=== PATIENT | male | born 1990 | race Caucasian/White ===

== ENCOUNTER 2017-11-08 22:58 | Emergency (ER) | payer OTHER, BC ==
[2017-11-08 23:04] VITALS: BP 125/77
[2017-11-08] MEDS ORDERED: TETRACAINE HCL 0.5% OPH SOLN 4 ML OD ONE (23:17)
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
[2017-11-09] MEDS ORDERED: ERYTHROMYCIN 0.5% OPH OINTMENT 3.5 GM (ER DISP) OD PRN (00:52)
[2017-11-09] MEDS ORDERED: KETOROLAC TROMETHAMINE 0.45% 4 DROP/0.4 ML DROPERETTE OD ONE (00:52)
== END 2017-11-09 01:20 | disposition home or self-care (01) ==
LOC: ER 22:58
DX: T15.01XA Foreign body in cornea, right eye, initial encounter (principal); W22.8XXA Striking against or struck by other objects, initial encounter; Y93.89 Activity, other specified; Y92.821 Forest as the place of occurrence of the external cause; Y99.0 Civilian activity done for income or pay
CPT/HCPCS: 99283; J3490

== ENCOUNTER → 2018-03-08 | Outpatient (CLI) | payer BC ==
--- NOTE | 2018-03-09 07:46 | WOMENS IMAGING REPORT ---
EXAM DESCRIPTION: U/S BREAST UNILAT LIMITED COMPLETED DATE/TIME: 03/08/2018 10:39 am REASON FOR STUDY: HYPERTROPHY OF BREAST; N62 N62 HYPERTROPHY OF BREAST COMPARISON: None. TECHNIQUE: Real-time and static grayscale imaging performed of the right and left male breast target ed to the area of clinical/mammographic concern. Selected color Doppler images recorded. LIMITATIONS: None. FINDINGS: Left and right retroareolar regions were evaluated with ultrasound. Patient has mild bila teral gynecomastia. No cysts. No worrisome masses. IMPRESSION: Mild bilateral gynecomastia BIRAD: 2 Benign findings. RECOMMENDATION: RECOMMENDED FOLLOW-UP: Follow-up as clinically indicated. COMMENT: The [employer] (ACR) has developed recommendations for screening MRI of the breasts in certain patient populations, to be used in conjunction with mammography. Breast MRI s urveillance may be appropriate for women with more than 20% lifetime risk of developing breast cancer as determined by genetic testing, significant family history of the disease, or history of mantle r adiation for Hodgkins Disease. ACR Practice Guidelines 2008. TECHNICAL DOCUMENTATION: JOB ID: [id number] [employer]- All Rights Reserved Reading location - IP/workstation name: [email or web address]
--- NOTE | 2018-03-09 07:46 | WOMENS IMAGING REPORT ---
EXAM DESCRIPTION: U/S BREAST UNILAT LIMITED COMPLETED DATE/TIME: 03/08/2018 10:39 am REASON FOR STUDY: HYPERTROPHY OF BREAST; N62 N62 HYPERTROPHY OF BREAST COMPARISON: None. TECHNIQUE: Real-time and static grayscale imaging performed of the right and left male breast target ed to the area of clinical/mammographic concern. Selected color Doppler images recorded. LIMITATIONS: None. FINDINGS: Left and right retroareolar regions were evaluated with ultrasound. Patient has mild bila teral gynecomastia. No cysts. No worrisome masses. IMPRESSION: Mild bilateral gynecomastia BIRAD: 2 Benign findings. RECOMMENDATION: RECOMMENDED FOLLOW-UP: Follow-up as clinically indicated. COMMENT: The [employer] (ACR) has developed recommendations for screening MRI of the breasts in certain patient populations, to be used in conjunction with mammography. Breast MRI s urveillance may be appropriate for women with more than 20% lifetime risk of developing breast cancer as determined by genetic testing, significant family history of the disease, or history of mantle r adiation for Hodgkins Disease. ACR Practice Guidelines 2008. TECHNICAL DOCUMENTATION: JOB ID: [id number] [employer]- All Rights Reserved Reading location - IP/workstation name: [email or web address]
== END ==
LOC: WI 09:48
PROVIDERS: ATTEND Nurse Practitioner Family
DX: N62 Hypertrophy of breast (principal)
CPT/HCPCS: 76642

== ENCOUNTER 2018-07-31 09:02 | Emergency (ER) | payer OTHER, BC ==
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
[2018-07-31 10:24] VITALS: BP 125/67
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
== END 2018-07-31 10:48 | disposition home or self-care (01) ==
LOC: ER 09:02
DX: S51.041A Puncture wound with foreign body of right elbow, initial encounter (principal); W45.8XXA Other foreign body or object entering through skin, initial encounter; Y99.0 Civilian activity done for income or pay
CPT/HCPCS: 99284

== ENCOUNTER 2020-07-01 17:22 | Emergency (ER) | payer OTHER, BC ==
--- NOTE | 2020-07-01 17:56 | RADIOLOGY REPORT (SQ) ---
EXAM DESCRIPTION: FOREARM LEFT COMPLETED DATE/TIME: 07/01/2020 5:41 pm REASON FOR STUDY: fall; possible dislocation COMPARISON: None. NUMBER OF VIEWS: Two views. TECHNIQUE: Two radiographic images acquired of the left forearm, including elbow and wrist in at [address] one projection. LIMITATIONS: None. FINDINGS: MINERALIZATION: Normal. BONES: No acute fracture. No worrisome bone lesions. SOFT TISSUES: No obvious swelling or foreign body. OTHER: No other significant finding. IMPRESSION: NEGATIVE STUDY OF THE LEFT FOREARM. NO RADIOGRAPHIC EVIDENCE OF ACUTE INJURY. TECHNICAL DOCUMENTATION: JOB ID: [id number] 2010 [employer]- All Rights Reserved Reading location - IP/workstation name: [email or web address]
--- NOTE | 2020-07-01 19:48 | RADIOLOGY REPORT (SQ) ---
EXAM DESCRIPTION: WRIST LEFT 3 VIEWS IMAGES COMPLETED DATE/TIME: 07/01/2020 7:37 pm REASON FOR STUDY: fall on outstretched hand COMPARISON: None. NUMBER OF VIEWS: Three views. TECHNIQUE: AP, lateral, and oblique radiographic images acquired of the left wrist. LIMITATIONS: None. FINDINGS: MINERALIZATION: Normal. BONES: No acute fracture or dislocation. No worrisome bone lesions. Normal alignment. SOFT TISSUES: No soft tissue swelling. No foreign body. OTHER: No other significant finding. IMPRESSION: NEGATIVE STUDY OF THE LEFT WRIST. NO RADIOGRAPHIC EVIDENCE OF ACUTE INJURY. TECHNICAL DOCUMENTATION: JOB ID: [id number] 2010 [employer]- All Rights Reserved Reading location - IP/workstation name: [email or web address]
--- NOTE | 2020-07-01 20:36 | ER Document Report ---
HPI - HPI Pain Level: 3 Notes: 39-year-old male presents with left wrist pain after a fall on outstretched hand injury occurring this afternoon while he was tracking with his dog. Is left hand dominant. States he tripped over something in the [place] and fell on an outstretched hand. He has a small superficial abrasion on his left wrist. He reports that his tetanus is up-to-date within the last 5 years. He has pain with flexion extension and rotation of his wrist. Denies being in any pain when he is not moving his wrist. His next is currently splinted with the same splint at this time. No fevers, chills or additional symptoms. Past Medical History - Social History Smoking Status: Never Smoker Frequency of alcohol use: Social Drug Abuse: None Family History: Arthritis, CAD, CVA, DM, Hyperlipidemia, Hypertension, Malignancy Renal/ Medical History: Denies: Hx Peritoneal Dialysis Musculoskeletal Medical History: Reports Hx Musculoskeletal Trauma Traumatic Medical History: Reports: Hx Fractures - Toe - Immunizations Immunizations up to date: Yes Vertical Provider Document - INFECTION CONTROL TRAVEL OUTSIDE OF THE [place] IN LAST 30 DAYS: No - MUSCULOSKELETAL/EXTREMETIES Notes: wrist is ttp along ulnar styloid process and anterior wrist, wrist is stable. Pain with ROM. No swelling, erythema or ecchymosis. Capillary refill < 2 seconds. Strong radial pulses, good sensation to light touch. - NEURO Motor/Sensory: No Motor Deficit, No Sensory Deficit - DERM Notes: 3 cm superficial cut on right anterior wrist,no surrounding erythema Course - Re-evaluation Re-evalutation: 07/01/20 23:46 Xray shows no fracture of wrist. Patient continues to not desire pain medication. Wrist is stable, but I have concerns of ligament damage. Wrist will be splinted. I recommend close followo up with an orthopedist and his primary care. He can use tylenol and ibuprofen for pain relief. Return precautions discussed. Patient acknowledges and verbalizes understanding of instructions and plan. All questions answered. - Vital Signs Vital signs: Temp Pulse Resp BP Pulse Ox 98.1 F 60 17 120/75 90 L 07/01/20 17:42 07/01/20 17:42 07/01/20 17:42 07/01/20 17:42 07/01/20 17:42 Procedures - Immobilization Left Wrist Pre-Proc Neuro Vasc Exam: Normal Immobilizer type: Volar splint Post-Proc Neuro Vasc Exam: Normal Discharge - Discharge Clinical Impression: Left wrist sprain Qualifiers: Encounter type: initial encounter Qualified Code(s): S63.502A - Unspecified sprain of left wrist, initial encounter Condition: Stable Disposition: HOME, SELF-CARE Instructions: Wrist Sprain ([facility]) Additional Instructions: Your x-rays show no fracture. I suspect that you have ligament damage to your wrist. Please follow-up with an orthopedic doctor within a week. Please also follow-up with your primary care provider as soon as possible. If you have any worsening symptoms please return to the emergency department as soon as possible. You may use Tylenol and ibuprofen for pain. Referrals: LORENZA CORNEJO FNP-C [NO LOCAL MD] - Follow up as needed
[2020-07-01 21:21] VITALS: BP 120/70
== END 2020-07-01 21:22 | disposition home or self-care (01) ==
LOC: ER 17:22
DX: S63.502A Unspecified sprain of left wrist, initial encounter (principal); S61.511A Laceration without foreign body of right wrist, initial encounter; S60.812A Abrasion of left wrist, initial encounter; W01.0XXA Fall on same level from slipping, tripping and stumbling without subsequent striking against object, initial encounter; Y93.89 Activity, other specified; Y92.821 Forest as the place of occurrence of the external cause
CPT/HCPCS: 99283